=== PATIENT | female | born 1995 | race Caucasian/White ===

== ENCOUNTER 2019-03-10 22:56 | Emergency (ER) | payer OTHER ==
[~2019-03-10] VITALS: Ht 160 cm; Wt 104.5 kg
[~2019-03-10 22:56] MED LIST: NORCOBULK PO; VICO5TAB PO
[2019-03-10 23:29] LABS: BASO # 0.1 10^3/uL (0.0-0.2); BASO % 0.4 % (0.0-1.0); EOS # 0.1 10^3/uL (0.0-0.50); EOS % 0.8 % (0.0-3.0); HEMATOCRIT 38.8 % (36.0-47.0); HEMOGLOBIN 12.6 g/dl (12.0-15.5); LYMPH # 3.7 10^3/uL (1.5-6.5); LYMPH % 28.3 % (24.0-44.0); MEAN CORPUSCULAR HEMOGLOBIN 28.1 pg (27.0-33.0); MEAN CORPUSCULAR HGB CONC 32.5 g/dl (32.0-36.5); MEAN CORPUSCULAR VOLUME 86.6 fl (80.0-96.0); MONO # 0.7 10^3/uL (0.0-0.8); NEUTROPHILS # 8.5 10^3/uL (1.8-7.7); NEUTROPHILS % 65.1 % (36.0-66.0); PLATELET COUNT, AUTOMATED 340 10^3/uL (150-450); RED BLOOD COUNT 4.48 10^6/uL (4.00-5.40)
--- NOTE | 2019-03-11 00:53 | REPVR ---
EXAM: US First Trimester, Transabdominal EXAM DATE/TIME: 03/11/2019 12:24 AM CLINICAL HISTORY: 23 years old, female; complicated by abdominal or pelvic pain; Lower; First trimester; Gestational age or lmp: 14; ; Additional info: Cramping TECHNIQUE: Imaging protocol: Real-time transabdominal obstetrical ultrasound of the maternal pelvis and a first trimester , less than 14 weeks 0 days, with image documentation. COMPARISON: US PELVIC NON-OB COMPLETE 05/30/2015 7:40 PM FINDINGS: Intrauterine with crown-rump length 7.1 cm. cardiac activity is identified with a heart rate of 168 beats/min. Amniotic fluid volume is qualitatively normal. crown-rump length and femur length measurements correspond to an estimated gestational age of 13 weeks 2 days. IMPRESSION: Single IUP with measurements corresponding to an EGA of approximately 13 weeks 2 days. Electronically signed by: Dallas Wilson On 03/11/2019 00:53:29 AM
[2019-03-11 02:05] VITALS: BP 135/68
[2019-03-11 02:59] LABS: CHLAMYDIA DNA AMPLIFICATION NEGATIVE (NEGATIVE); GC DNA AMPLIFICATION NEGATIVE (NEGATIVE)
== END 2019-03-11 02:09 | disposition home or self-care (01) ==
LOC: M ED 22:56
DX: O26.891 Other specified pregnancy related conditions, first trimester (principal); Z3A.13 13 weeks gestation of pregnancy; Z87.59 Personal history of other complications of pregnancy, childbirth and the puerperium; O24.419 Gestational diabetes mellitus in pregnancy, unspecified control

== ENCOUNTER → 2019-03-17 | Outpatient (REF) | payer OTHER | LOC: M LAB REF 12:13 | PROVIDERS: ATTEND Physician Assistant Medical | DX: J02.9 Acute pharyngitis, unspecified (principal) ==

== ENCOUNTER 2019-06-02 20:01 | Outpatient (CLI) | payer OTHER ==
[~2019-06-02] VITALS: Ht 160 cm; Wt 108.4 kg
[2019-06-02 20:31] VITALS: BP 122/57
[2019-06-02] MEDS ORDERED: PRENTAB9 PO (20:44)
[2019-06-02] MEDS ORDERED: FIORICET TAB PO ONE (21:30)
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
== END 2019-06-02 22:30 | disposition home or self-care (01) ==
LOC: M LDO 20:01
PROVIDERS: ATTEND Advanced Practice Midwife
DX: O26.892 Other specified pregnancy related conditions, second trimester (principal); Z3A.26 26 weeks gestation of pregnancy
CPT/HCPCS: G0378; G0463

== ENCOUNTER 2019-07-15 13:34 | Emergency (ER) | payer OTHER ==
[~2019-07-15] VITALS: Ht 162.6 cm; Wt 109.5 kg
[2019-07-15 13:34] VITALS: BP 140/72
[~2019-07-15 13:34] MED LIST changes: +PRENTAB9 PO
[2019-07-15] MEDS ORDERED: ACET-840 PO (13:42)
[2019-07-15 15:15] LABS: MONO SCRN NEGATIVE (NEGATIVE)
[2019-07-15] MEDS ORDERED: BENZ150C2 PO (17:45)
== END 2019-07-15 14:40 | disposition admitted as inpatient to this hospital (09) ==
LOC: M ED 13:34
DX: O99.89 Other specified diseases and conditions complicating pregnancy, childbirth and the puerperium (principal); R50.9 Fever, unspecified; J02.9 Acute pharyngitis, unspecified; Z3A.32 32 weeks gestation of pregnancy

== ENCOUNTER 2019-07-15 14:41 | Outpatient (CLI) | payer OTHER ==
[~2019-07-15] VITALS: Ht 162.6 cm; Wt 108.7 kg
[~2019-07-15 14:41] MED LIST changes: +ACET-840 PO
[2019-07-15 15:22] VITALS: BP 114/58
[2019-07-15] MEDS ORDERED: LR 1,000 ML IV SCH (15:45)
[2019-07-15 17:00] LABS: INFLUENZA A AMPLIFICATION NEGATIVE (NEGATIVE); INFLUENZA B AMPLIFICATION NEGATIVE (NEGATIVE)
[2019-07-15 17:07] VITALS: BP 102/53
[2019-07-15] MEDS ORDERED: ACETAMINOPHEN TAB 650MG DOSE (2X325MG) PO PRN (17:15)
[2019-07-15 17:24] LABS: APPEARANCE, URINE CLEAR (CLEAR); BACTERIA, URINE AUTO NEGATIVE (NEGATIVE); BILIRUBIN, URINE AUTO NEGATIVE (NEGATIVE); BLOOD, URINE BLOOD NEGATIVE (NEGATIVE); COLOR, URINE YELLOW (YELLOW); GLUCOSE, URINE (UA) AUTO NEGATIVE (NEGATIVE); KETONE, URINE AUTO NEGATIVE (NEGATIVE); LEUKOCYTE ESTERASE, URINE AUTO NEGATIVE (NEGATIVE); MUCUS, URINE SMALL (NEGATIVE); NITRITE, URINE AUTO NEGATIVE (NEGATIVE); PROTEIN, URINE AUTO NEGATIVE (NEGATIVE); RBC, URINE AUTO 0 /HPF (0-3); SQUAMOUS EPITHELIAL CELL UR AU 0 /HPF (0-6); UROBILINOGEN, URINE AUTO 0.2 mg/dL (0.0-2.0); WBC, URINE AUTO 0 /HPF (0-3)
[2019-07-15] MEDS ORDERED: LR 500 ML IV ONE (17:30)
[2019-07-15] MEDS ORDERED: BENZ150C2 PO (17:45)
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
== END 2019-07-15 18:07 | disposition home or self-care (01) ==
LOC: M LDO 14:41
PROVIDERS: ATTEND Obstetrics & Gynecology
DX: O99.89 Other specified diseases and conditions complicating pregnancy, childbirth and the puerperium (principal); R50.9 Fever, unspecified; J02.9 Acute pharyngitis, unspecified; Z3A.32 32 weeks gestation of pregnancy
CPT/HCPCS: 59025; 81001; 86308; 87631; 87880; G0378; G0463

== ENCOUNTER → 2019-07-19 | Outpatient (CLI) | payer OTHER ==
[~2019-07-19] MED LIST changes: +BENZ150C2 PO
[2019-07-19 13:39] LABS: ALBUMIN 2.6 GM/DL (3.2-5.2); ALT/SGPT 63 U/L (12-78); BILIRUBIN,DIRECT < 0.1 MG/DL (0.0-0.2); BILIRUBIN,TOTAL 0.3 MG/DL (0.2-1.0); TOTAL PROTEIN 6.8 GM/DL (6.4-8.2)
[2019-07-19 14:04] LABS: HEPATITIS B SURFACE ANTIGEN NEGATIVE (NEGATIVE)
[2019-07-19 14:32] LABS: HEPATITIS B CORE ANTIBODY IGM NEGATIVE (NEGATIVE); HEPATITIS C VIRUS ABY INDEX 0.1 INDEX (<0.8)
[2019-07-19 14:33] LABS: HIV 1&2 SCREEN CENTAUR NEGATIVE (NEGATIVE)
[2019-07-19 14:35] LABS: HEPATITIS A ANTIBODY IGM NEGATIVE (NEGATIVE)
== END ==
LOC: M SMT 10:00
PROVIDERS: ATTEND Advanced Practice Midwife
DX: Z34.80 Encounter for supervision of other normal pregnancy, unspecified trimester (principal); Z3A.00 Weeks of gestation of pregnancy not specified; L29.9 Pruritus, unspecified

== ENCOUNTER → 2019-07-26 | Outpatient (CLI) | payer OTHER ==
--- NOTE | 2019-07-26 11:55 | REP ---
OB ULTRASOUND, BIOPHYSICAL PROFILE: Real-time sonographic evaluation of the gravid uterus is performed. There is a single living intrauterine gestation. Estimated gestational age is 33 weeks 5 days, EDC 09/08/2019. heart rate is 158 beats per minute. Amniotic fluid appears within normal limits. HUAN is 11.2, within normal range of 8.2-24.7. Biophysical profile 8. Placenta posterior and grade 1 without no previa or abruption. S/D ratio 2.26. Electronically Signed by Ole Altamirano MD 07/26/2019 04:35 P
== END ==
LOC: M RAD 10:05
PROVIDERS: ATTEND Advanced Practice Midwife
DX: O26.613 Liver and biliary tract disorders in pregnancy, third trimester (principal); Z3A.33 33 weeks gestation of pregnancy

== ENCOUNTER → 2019-07-29 | Outpatient (CLI) | payer OTHER ==
--- NOTE | 2019-07-29 13:35 | REP ---
OB ULTRASOUND: Real-time sonographic evaluation of the gravid uterus is performed. There is a single living intrauterine gestation. Estimated gestational age 34 weeks 0 days, EDC 09/09/2019. Today's measurements indicate appropriate growth. BPD 82 mm = 33 weeks 0 days, 36th percentile HC 302 mm = 33 weeks 4 days, 43rd percentile AC 283 mm = 32 weeks 3 days, 26th percentile Femur length 65 mm = 33 weeks 5 days, 46th percentile HC/AC ratio 1.07 within normal range. Estimated weight 2084 grams, 27th percentile. Cervix is closed and measures 3.0 cm in length. heart rate 147 beats per minute. Amniotic fluid within normal limits, HUAN 20.2 within normal range of 8.1-24.8. Biophysical profile score 8/8. S/D ratio 2.68 within normal range of 2.0-3.0. RI 0.63 within normal range of 0.59-0.75. Visualized anatomy today includes lateral ventricles, upper lip, four chamber heart, left ventricular outflow tract, three vessel cord, kidneys, bladder, and spine which are all grossly unremarkable. position vertex. Placenta posterior and fundal and grade 2 with no previa or abruption. Electronically Signed by Ole Altamirano MD 07/29/2019 05:57 P
== END ==
LOC: M RAD 08:45
PROVIDERS: ATTEND Advanced Practice Midwife
DX: O26.843 Uterine size-date discrepancy, third trimester (principal); L29.9 Pruritus, unspecified; O99.73 Diseases of the skin and subcutaneous tissue complicating the puerperium; Z3A.34 34 weeks gestation of pregnancy

== ENCOUNTER 2019-08-01 11:48 | Outpatient (CLI) | payer OTHER ==
[~2019-08-01] VITALS: Ht 160 cm; Wt 109.5 kg
[2019-08-01 12:05] VITALS: BP 129/64
--- NOTE | 2019-08-01 14:22 | REP ---
Third trimester obstetric ultrasound for biophysical profile: There is a single intrauterine gestation in a vertex presentation. The placenta is posterior / fundal without previa or abruptio. Placenta is grade II. The heart rate is 158 beats per minute. The cervix is 3.2 cm length. Gestational age by the first ultrasound is 34 weeks 4 days/BRETT 09/09/2019. The gestational age by LMP is 34 weeks 4 days/BRTET 09/08/2019. Subjectively the amniotic fluid volume is normal. The amniotic fluid index is 12.0 (8.0 - 24.8). biophysical profile: Breathing 2.0 Movement 2.0 Tone 2.0 AFV 2.0 Total 8.0 / 8.0 Umbilical artery Doppler assessment: S/D ratio 2.25 (2.30-3.30) Resistive Index 0.56 (0.59-0.75 Diastolic Velocity 26.7 (>10 cm/sec) Electronically Signed by Ole Nelson MD 08/01/2019 02:14 P
== END 2019-08-01 14:11 | disposition home or self-care (01) ==
LOC: M LDO 11:48
PROVIDERS: ATTEND Obstetrics & Gynecology
DX: O36.8130 Decreased fetal movements, third trimester, not applicable or unspecified (principal); Z3A.34 34 weeks gestation of pregnancy
CPT/HCPCS: 59025; 76819; 76820; G0378; G0463

== ENCOUNTER → 2019-08-04 | Outpatient (REF) | payer OTHER | LOC: M LAB REF 16:55 | PROVIDERS: ATTEND Advanced Practice Midwife | DX: O26.613 Liver and biliary tract disorders in pregnancy, third trimester (principal); Z3A.00 Weeks of gestation of pregnancy not specified ==

== ENCOUNTER → 2019-08-11 | Outpatient (CLI) | payer OTHER ==
[~2019-08-11] MED LIST changes: +ACET-683 PO; +IBUP80TA PO; +URSO300C3 PO
[2019-08-11 18:11] LABS: ALBUMIN 2.4 GM/DL (3.2-5.2); BILIRUBIN,DIRECT 0.1 MG/DL (0.0-0.2); BILIRUBIN,TOTAL 0.3 MG/DL (0.2-1.0); TOTAL PROTEIN 6.5 GM/DL (6.4-8.2)
== END ==
LOC: M SMT 14:31
PROVIDERS: ATTEND Advanced Practice Midwife
DX: O26.613 Liver and biliary tract disorders in pregnancy, third trimester (principal)

== ENCOUNTER 2019-08-14 18:37 | Inpatient (IN) | payer OTHER ==
[~2019-08-14] VITALS: Ht 160 cm; Wt 110.0 kg
[~2019-08-14 18:37] MED LIST changes: -ACET-683 PO; -IBUP80TA PO; -URSO300C3 PO
[2019-08-14] MEDS ORDERED: URSO300C3 PO (18:50)
[2019-08-14 18:54] VITALS: BP 130/67
[2019-08-14 20:26] VITALS: BP 123/64
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
[2019-08-14 21:20] LABS: HEMATOCRIT 36.5 % (36.0-47.0); MEAN CORPUSCULAR HEMOGLOBIN 29.2 pg (27.0-33.0); MEAN CORPUSCULAR HGB CONC 32.9 g/dl (32.0-36.5); MEAN CORPUSCULAR VOLUME 88.8 fl (80.0-96.0); PLATELET COUNT, AUTOMATED 289 10^3/uL (150-450); RED BLOOD COUNT 4.11 10^6/uL (4.00-5.40); WHITE BLOOD COUNT 14.3 10^3/uL (4.0-10.0)
[2019-08-14 22:32] VITALS: BP 116/71
[2019-08-14] MEDS ORDERED: LR 1,000 ML IV SCH (23:46)
[2019-08-14] MEDS ORDERED: LACTATED RINGER'S 1000 ML IV STA (23:46)
[2019-08-15] VITALS (29 sets, daily range): BP systolic 98–137; BP diastolic 51–75
[2019-08-15] MEDS ORDERED: OXYTOCIN DRIP 30 UNITS in IV 1 EA IV SCH ×2
[2019-08-15] MEDS ORDERED: FENTANYL 2MCG/ML ROPIVACAINE 0.2% IN 0.9% NACL 100ML IVBAG As Ordered ONE (00:09)
[2019-08-15] MEDS ORDERED: ONDANSETRON 4MG/2ML VIAL (J2405) IV PRN ×2 (00:53→07:30)
[2019-08-15] MEDS ORDERED: ePHEDrine SULFATE 25 MG/5 ML(5MG/ML) SYRINGE IV PRN (00:53)
[2019-08-15] MEDS ORDERED: EPIDURAL/PCA KEYS XX PRN (00:53)
[2019-08-15] MEDS ORDERED: NALOXONE INJ 0.4 MG/1 ML VIAL (J2310) IV PRN (00:53)
[2019-08-15] MEDS ORDERED: FENTANYL/ROPIVACAINE/NACL BAG 100 ML EPIDURAL SCH (00:53)
[2019-08-15] MEDS ORDERED: LACTATED RINGER'S 1000 ML IV PRN (00:53)
[2019-08-15] MEDS ORDERED: REFRIGERATOR IV KEYS XX PRN (00:53)
[2019-08-15] MEDS ORDERED: diphenhydrAMINE INJ 50MG/ML VIAL (J1200) IV PRN (00:53)
[2019-08-15] MEDS ORDERED: EPIDURAL COMMENT XX SCH (00:53)
[2019-08-15] MEDS ORDERED: IBUPROFEN 800 MG TAB PO PRN (07:30)
[2019-08-15] MEDS ORDERED: IBUPROFEN 600 MG TAB PO PRN (07:30)
[2019-08-15] MEDS ORDERED: DOCUSATE SODIUM 100 MG CAP PO PRN (07:30)
[2019-08-15] MEDS ORDERED: RHOGAM 300 MCG (1500 IU) INJ (J2790) IM SCH (07:30)
[2019-08-15] MEDS ORDERED: ACETAMINOPHEN TAB 650MG DOSE (2X325MG) PO PRN (07:30)
[2019-08-15] MEDS ORDERED: MEASLES,MUMPS,RUBELLA VACCINE INJ (MMR-II) (90707) SC SCH (07:30)
[2019-08-15] MEDS ORDERED: DIBUCAINE 1% OINTMENT 30GM TOP PRN (07:30)
[2019-08-15] MEDS ORDERED: ACETAMINOPHEN 500 MG TAB PO PRN (07:30)
[2019-08-15] MEDS ORDERED: METHYLERGONOVINE MALEATE 0.2 MG TAB PO PRN (07:30)
[2019-08-15] MEDS ORDERED: OXYTOCIN DRIP 30 UNITS in IV 1 EA IV ONE (07:30)
[2019-08-15] MEDS ORDERED: SLF 3 ML SYR IV PRN (08:30)
[2019-08-15] MEDS: PRENATAL VITAMINS CHEWABLE TABLET PO SCH (09:00)
[2019-08-15] MEDS: SLF 3 ML SYR IV SCH ×2 (14:00→22:00)
[2019-08-16 06:00] VITALS: BP 103/51
[2019-08-16] MEDS: PRENATAL VITAMINS CHEWABLE TABLET PO SCH (08:28)
--- NOTE | 2019-08-16 10:33 | DN ---
DATE OF DELIVERY: 08/15/2019 PREDELIVERY DIAGNOSIS: 36 and 4/7 weeks gestation, cholestasis of , labor. POSTDELIVERY DIAGNOSIS: Delivered. PROCEDURE: Spontaneous vaginal delivery. DIRECTOR WHOLESALE: Dr. Jeremiah Delgado ANESTHESIA: Epidural. ESTIMATED BLOOD LOSS: 300 mL. FINDINGS: 6 pound 6 ounce male , Apgars 8 and 9. DELIVERY SUMMARY: After a short second stage consisting of one contraction, the patient spontaneously delivered a 6 pound 6 ounce male infant, Apgars 8 and 9, under epidural anesthesia. Nuchal cord times one was delivered through. The shoulders delivered with ease. The infant was handed to the mother. The cord was doubly clamped and cut. The placenta delivered spontaneously and appeared to be intact. The patient received IV Pitocin immediately after delivery of the placenta. There were no vaginal lacerations present. Sponge counts were correct.
[2019-08-16] MEDS ORDERED: IBUP80TA PO (14:07)
[2019-08-16] MEDS ORDERED: ACET-683 PO (14:07)
== END 2019-08-16 16:10 | disposition home or self-care (01) | DRG 805 ==
LOC: M LDO 18:37 → M LDI 19:59 → M OBS 08-15 08:43
PROVIDERS: ADMIT Specialist; ATTEND Specialist
PROC: 10E0XZZ Delivery of Products of Conception, External Approach (ICD-10-PCS; principal; 2019-08-15)
DX: O26.62 Liver and biliary tract disorders in childbirth (principal); Z37.0 Single live birth; K83.1 Obstruction of bile duct; O60.14X0 Preterm labor third trimester with preterm delivery third trimester, not applicable or unspecified; O69.81X0 Labor and delivery complicated by cord around neck, without compression, not applicable or unspecified; Z3A.36 36 weeks gestation of pregnancy